=== PATIENT | female | born 1985 | race Caucasian/White ===

== ENCOUNTER 2023-05-08 08:20 | Emergency (ER) | payer BC ==
[2023-05-08] MEDS ORDERED: KETOROLAC 15 MG/ML 1 ML VIAL IVP STA (08:46)
[2023-05-08] MEDS ORDERED: SODIUM CHLORIDE 0.9% 1,000 ML IV STA (08:46)
[2023-05-08] MEDS ORDERED: IPRATROPIUM-ALBUTEROL 3 ML NEB INHALATION STA (08:46)
--- NOTE | 2023-05-08 08:53 | ED ---
SOB HPI - General Chief Complaint: Shortness of Breath Stated Complaint: Chest pains Time Seen by Provider: 05/08/23 08:23 Source: patient, RN notes reviewed Mode of arrival: ambulatory Limitations: no limitations - History of Present Illness Initial Comments: This is a 38-year-old female who presents to the emergency department for chest pain and shortness of breath. Patient states that for the last week she has had coughing and congestion, and thought that she just had a cold. Over the last couple of days she started to develop a right-sided chest pain with shortness of breath. The pain started out as sharp and has since become achy and pressure- like in nature. Denies any history of similar symptoms in the past. Also denies any history of respiratory illnesses such as asthma or COPD. She is not a smoker. Denies any personal or family history of cardiac problems. Denies any fevers, chills, sore throat, palpitations, abdominal pain, nausea, vomiting, diarrhea, back pain, or headaches. MD Complaint: shortness of breath, cough, chest pain - Related Data Previous Rx's Medication Instructions Recorded Albuterol Sulfate [Albuterol 1 puff PO Q4-6H PRN #8.5 gm 05/08/23 Sulfate Hfa] Azithromycin [Zithromax] 250 mg PO DIRECTED #6 tab 05/08/23 Promethazine/Dextromethorphan 5 ml PO Q4-6H PRN #473 ml 05/08/23 [Promethazine-Dm Syrup] predniSONE 50 mg PO DAILY 5 Days #5 tab 05/08/23 Allergies Allergy/AdvReac Type Severity Reaction Status Date / Time No Known Allergies Allergy Verified 05/08/23 10:24 Review of Systems ROS Statement: Those systems with pertinent positive or pertinent negative responses have been documented in the HPI. ROS Other: All systems not noted in ROS Statement are negative. Past Medical History Past Medical History: No Reported History History of Any Multi-Drug Resistant Organisms: None Reported Past Surgical History: Adenoidectomy, Breast Surgery, Orthopedic Surgery, Tonsillectomy Past Psychological History: ADD/ADHD Smoking Status: Never smoker Past Alcohol Use History: Daily Past Drug Use History: None Reported General Exam Limitations: no limitations General appearance: alert, in no apparent distress Head exam: Present: atraumatic, normocephalic, normal inspection Respiratory exam: Present: normal lung sounds bilaterally. Absent: respiratory distress, wheezes, rales, rhonchi, stridor, chest wall tenderness Cardiovascular Exam: Present: regular rate, normal rhythm, normal heart sounds. Absent: systolic murmur, diastolic murmur, rubs, gallop, clicks Neurological exam: Present: alert, oriented X3, CN II-XII intact Psychiatric exam: Present: normal affect, normal mood Skin exam: Present: warm, dry, intact, normal color. Absent: rash Course Vital Signs 05/08/23 05/08/23 05/08/23 08:31 08:57 10:04 Temperature 98.2 F Pulse Rate 85 81 62 Respiratory 18 18 18 Rate Blood Pressure 155/106 141/104 126/92 O2 Sat by Pulse 99 99 97 Oximetry Medical Decision Making - Medical Decision Making This is a 38-year-old female who presents to the emergency department for chest pain and shortness of breath. Was pt. sent in by a medical professional or institution? @ -No Did you speak to anyone other than the patient for history? @ -No Did you review nursing and triage notes? @ -Yes, and I agree, it is accurate with regards to the patient's symptoms. Were old charts reviewed? @ -No Differential Diagnosis? @ -Differential Chest Pain: Stable Angina, Unstable Angina, STEMI, NSTEMI Aortic Dissection, Pneumothorax, Musculoskeletal, Esophageal Spasm GERD, Cholecystitis, Pancreatitis, Zoster, this is not meant to be an all-inclusive list. EKG interpreted by me (3pts min.)? @ -EKG interpreted by me demonstrating the following: Sinus rhythm. Ventricular rate 60 beats per minute, MT interval 173 ms, QRS duration 81 ms, QTC 391 ms. X-rays interpreted by me (1pt min.)? @ -Chest x-ray obtained. My interpretation identifies a right middle lobe infiltrate. CT interpreted by me (1pt min.)? @ -CT angiogram of the chest obtained. My interpretation identifies no evidence of a pulmonary embolus. U/S interpreted by me (1pt. min.)? @ -Not obtained What testing was considered but not performed? (CT, X-rays, U/S, labs)? Why? @ -None What meds were considered but not given? Why? @ -None Did you discuss the management of the patient with other professionals? @ -No Did you reconcile home meds? @ -No Was smoking cessation discussed for >3mins.? @ -No Was critical care preformed (if so, how long)? @ -No Were there social determinants of health that impacted care today? How? (Homelessness, low income, unemployed, alcoholism, drug addiction, transportation, low edu. Level, literacy, decrease access to med. care, [facility], rehab)? @ -No Was there de-escalation of care discussed even if they declined? (Discuss DNR or withdrawal of care, Hospice)? @ -No What co-morbidities impacted this encounter? (DM, HTN, Smoking, COPD, CAD, Cancer, CVA, Hep., AIDS, mental health diagnosis, sleep apnea, morbid obesity)? @ -None Was patient admitted / discharged? @ -Discharged. Lab work obtained revealing a mildly elevated d-dimer of 0.68. Lab work was otherwise nonactionable. COVID, influenza, and RSV testing were ne gative. Chest x-ray reveals a right middle lobe airspace opacity concerning for pneumonia. She was given IV fluids and Toradol with improvement in pain. Given her symptoms and elevated d-dimer, CTA of the chest was obtained. This did not identify any evidence of a pulmonary embolus. It did identify the patchy consolidation in the right lung, this one was better seen in the lower lobe as opposed to the middle lobe that was seen on the chest x-ray. Patient was given a DuoNeb breathing treatment as well, which she also found beneficial. Advised the patient that we will treat her for a pneumonia. Prescription for azithromycin, prednisone, promethazine DM cough syrup, and albuterol inhaler provided with dosing instructions reviewed. Otherwise advised close follow-up with her primary care provider. Undiagnosed new problem with uncertain prognosis? @ -None Drug Therapy requiring intensive monitoring for toxicity (Heparin, Nitro, Insulin, Cardizem)? @ -None Were any procedures done? @ -None Diagnosis/symptom? @ -Right middle/lower lobe pneumonia Acute, or Chronic, or Acute on Chronic? @ -Acute Uncomplicated (without systemic symptoms) or Complicated (systemic symptoms)? @ -Uncomplicated Side effects of treatment? @ -None Exacerbation, Progression, or Severe Exacerbation] @ -Not applicable Poses a threat to life or bodily function? @ -Unlikely Return precautions reviewed in depth, the patient is instructed to return to the emergency department with any new, worsening, or concerning symptoms. Patient verbalized understanding. This case was discussed in detail with the attending ED physician, Dr. Carmona. Presentation, findings, and treatment plan discussed in detail as well. - Lab Data Result diagrams: 05/08/23 08:51 05/08/23 08:51 Lab Results 05/08/23 05/08/23 05/08/23 Range/Units 08:51 08:51 08:51 WBC 5.0 (3.8-10.6) k/uL RBC 4.64 (3.80-5.40) m/uL Hgb 14.3 (11.4-16.0) gm/dL Hct 42.7 (34.0-46.0) % MCV 92.0 (80.0-100.0) fL MCH 30.8 (25.0-35.0) pg MCHC 33.4 (31.0-37.0) g/dL RDW 11.5 (11.5-15.5) % Plt Count 413 (150-450) k/uL MPV 7.0 Neutrophils % 52 % Lymphocytes % 38 % Monocytes % 6 % Eosinophils % 2 % Basophils % 0 % Neutrophils # 2.6 (1.3-7.7) k/uL Lymphocytes # 1.9 (1.0-4.8) k/uL Monocytes # 0.3 (0-1.0) k/uL Eosinophils # 0.1 (0-0.7) k/uL Basophils # 0.0 (0-0.2) k/uL PT 10.0 (9.0-12.0) sec INR 0.9 (<1.2) APTT 25.9 (22.0-30.0) sec D-Dimer 0.68 H (<0.60) mg/L FEU Sodium 139 (137-145) mmol/L Potassium 4.3 (3.5-5.1) mmol/L Chloride 105 (98-107) mmol/L Carbon Dioxide 23 (22-30) mmol/L Anion Gap 11 mmol/L BUN 10 (7-17) mg/dL Creatinine 0.50 L (0.52-1.04) mg/dL Est GFR (CKD-EPI)AfAm >90 (>60 ml/min/1.73 sqM) Est GFR (CKD-EPI)NonAf >90 (>60 ml/min/1.73 sqM) Glucose 89 (74-99) mg/dL Plasma Lactic Acid Jac (0.7-2.0) mmol/L Calcium 9.5 (8.4-10.2) mg/dL Total Bilirubin 0.4 (0.2-1.3) mg/dL AST 26 (14-36) U/L ALT 17 (4-34) U/L Alkaline Phosphatase 97 (38-126) U/L Troponin I (0.000-0.034) ng/mL Total Protein 7.4 (6.3-8.2) g/dL Albumin 4.1 (3.5-5.0) g/dL HCG, Qual Not Detected Influenza Type A (PCR) (Not Detectd) Influenza Type B (PCR) (Not Detectd) RSV (PCR) (Not Detectd) SARS-CoV-2 (PCR) (Not Detectd) 05/08/23 05/08/23 05/08/23 Range/Units 08:51 08:51 08:51 WBC (3.8-10.6) k/uL RBC (3.80-5.40) m/uL Hgb (11.4-16.0) gm/dL Hct (34.0-46.0) % MCV (80.0-100.0) fL MCH (25.0-35.0) pg MCHC (31.0-37.0) g/dL RDW (11.5-15.5) % Plt Count (150-450) k/uL MPV Neutrophils % % Lymphocytes % % Monocytes % % Eosinophils % % Basophils % % Neutrophils # (1.3-7.7) k/uL Lymphocytes # (1.0-4.8) k/uL Monocytes # (0-1.0) k/uL Eosinophils # (0-0.7) k/uL Basophils # (0-0.2) k/uL PT (9.0-12.0) sec INR (<1.2) APTT (22.0-30.0) sec D-Dimer (<0.60) mg/L FEU Sodium (137-145) mmol/L Potassium (3.5-5.1) mmol/L Chloride (98-107) mmol/L Carbon Dioxide (22-30) mmol/L Anion Gap mmol/L BUN (7-17) mg/dL Creatinine (0.52-1.04) mg/dL Est GFR (CKD-EPI)AfAm (>60 ml/min/1.73 sqM) Est GFR (CKD-EPI)NonAf (>60 ml/min/1.73 sqM) Glucose (74-99) mg/dL Plasma Lactic Acid Jac 0.8 (0.7-2.0) mmol/L Calcium (8.4-10.2) mg/dL Total Bilirubin (0.2-1.3) mg/dL AST (14-36) U/L ALT (4-34) U/L Alkaline Phosphatase (38-126) U/L Troponin I <0.012 (0.000-0.034) ng/mL Total Protein (6.3-8.2) g/dL Albumin (3.5-5.0) g/dL HCG, Qual Influenza Type A (PCR) Not Detected (Not Detectd) Influenza Type B (PCR) Not Detected (Not Detectd) RSV (PCR) Not Detected (Not Detectd) SARS-CoV-2 (PCR) Not Detected (Not Detectd) - Radiology Data Radiology results: report reviewed, image reviewed Disposition Clinical Impression: Right middle lobe pneumonia Disposition: HOME SELF-CARE Instructions (If sedation given, give patient instructions): Pneumonia (ED) Additional Instructions: Return to the emergency department with any new, worsening, or concerning symptoms. Take the antibiotic as prescribed for 5 days. Take the prednisone daily for 5 days as well. You can use the inhaler and promethazine DM cough s yrup up to every 4-6 hours as needed. Follow up with your primary care provider in 1-2 days. Prescriptions: Albuterol Sulfate [Albuterol Sulfate Hfa] 1 puff PO Q4-6H PRN #8.5 gm PRN Reason: Shortness Of Breath predniSONE 50 mg PO DAILY 5 Days #5 tab Promethazine/Dextromethorphan [Promethazine-Dm Syrup] 5 ml PO Q4-6H PRN #473 ml PRN Reason: Cough Azithromycin [Zithromax] 250 mg PO DIRECTED #6 tab Is patient prescribed a controlled substance at d/c from ED?: No Referrals: None,Stated [Primary Care Provider] - 1-2 days
[2023-05-08 09:03] VITALS: RESP 18; TEMP 98.2
--- NOTE | 2023-05-08 09:32 | XR ---
EXAMINATION TYPE: XR chest 2V DATE OF EXAM: 05/08/2023 9:22 AM COMPARISON: None TECHNIQUE: XR chest 2V Frontal and lateral views of the chest. CLINICAL INDICATION:Female, 38 years old with history of difficulty breathing; FINDINGS: Lungs/Pleura: No pleural effusion or pneumothorax. Right middle lobe airspace opacity. Pulmonary vascularity: Unremarkable. Heart/mediastinum: Cardiomediastinal silhouette is unremarkable. Musculoskeletal: No acute osseous pathology. IMPRESSION: Right middle lobe airspace opacity concerning for pneumonia.
[2023-05-08 09:41] LABS: Basophils % (A) 0 %; Eosinophils # (A) 0.1 k/uL (0-0.7); Eosinophils % (A) 2 %; HCT 42.7 % (34.0-46.0); HGB 14.3 gm/dL (11.4-16.0); Lymphocytes # (A) 1.9 k/uL (1.0-4.8); Lymphocytes % (A) 38 %; MCH 30.8 pg (25.0-35.0); MCHC 33.4 g/dL (31.0-37.0); Monocytes # (A) 0.3 k/uL (0-1.0); Monocytes % (A) 6 %; Neutrophils # (A) 2.6 k/uL (1.3-7.7); Neutrophils % (A) 52 %; Platelet Count 413 k/uL (150-450); RBC 4.64 m/uL (3.80-5.40); RDW 11.5 % (11.5-15.5)
[2023-05-08 09:57] LABS: ALT 17 U/L (4-34); AST 26 U/L (14-36); African American GFR (CKD) >90 (>60 ml/min/1.73 sqM); Albumin 4.1 g/dL (3.5-5.0); Alkaline Phosphatase 97 U/L (38-126); Anion Gap 11 mmol/L; Blood Urea Nitrogen 10 mg/dL (7-17); Calcium 9.5 mg/dL (8.4-10.2); Carbon Dioxide 23 mmol/L (22-30); Chloride 105 mmol/L (98-107); Glucose 89 mg/dL (74-99); Non-African American GFR(CKD) >90 (>60 ml/min/1.73 sqM); Potassium 4.3 mmol/L (3.5-5.1); Sodium 139 mmol/L (137-145); Total Bilirubin 0.4 mg/dL (0.2-1.3); Total Protein 7.4 g/dL (6.3-8.2)
[2023-05-08 10:00] LABS: HCG,Qualitative Serum Not Detected; INR 0.9 (<1.2)
[2023-05-08 10:01] LABS: Partial Thromboplastin Time 25.9 sec (22.0-30.0)
--- NOTE | 2023-05-08 10:43 | CT ---
EXAMINATION TYPE: CT chest angio for PE CT DLP: 252.7 mGycm, Automated exposure control for dose reduction was used. DATE OF EXAM: 05/08/2023 10:37 AM COMPARISON: Chest radiograph from same day. CLINICAL INDICATION:Female, 38 years old with history of Chest pain, MIGUEL, elevated d-dimer; chest michael n and congestion, elevated d-dimer TECHNIQUE/CONTRAST: CTA scan of the thorax is performed with IV Contrast, patient injected with 67ml mL of Isovue 370, pu lmonary embolism protocol. MIP images are created and reviewed. FINDINGS: Pulmonary Artery: There is no evidence for a filling defect within the pulmonary vasculature to sugge st acute pulmonary embolism. The pulmonary artery is of normal size. Lungs/Pleura: No pleural effusion or pneumothorax. Linear atelectasis within the lingula. Tree-in-bud nodular opacities within the superior segments of the bilateral lower lobes and medial aspect of the right upper lobe . Patchy consolidation within the lateral aspect of the right lower lobe. Airway: Large airways are patent. Heart: Heart is within normal limits for size.. No pericardial effusion. Vasculature: No evidence of aortic aneurysm. Mediastinum: No gross evidence of adenopathy. Musculoskeletal: No acute osseous abnormalities Soft Tissues: Bilateral breast prosthesis. Lower neck: No significant findings. Upper Abdomen: No significant findings. IMPRESSION: 1. No evidence of pulmonary embolism. 2. Patchy consolidation within the lateral aspect of the right lower lobe with tree-in-bud nodular op acities within the superior segment of the bilateral lower lobes and medial aspect of the right upper lobe. Findings are most consistent with infectious/inflammatory bronchiolitis.
[2023-05-08 12:05] VITALS: BP 118/76; PULSE 102
== END 2023-05-08 11:50 | disposition home or self-care (01) ==
LOC: EC 08:20
DX: J18.9 Pneumonia, unspecified organism (principal); Z20.822 Contact with and (suspected) exposure to COVID-19
CPT/HCPCS: 99285; 96374; 96361 ×2; 36415; 94640; 93005; 85379; 80053; 83605; 84484; 85025; 85610; 85730; 84703; 87636; 71046; 71275; J1885; Q9967

== ENCOUNTER 2023-06-30 08:12 | Emergency (ER) | payer BC ==
[2023-06-30 08:59] VITALS: BP 141/108; PULSE 93; RESP 20; TEMP 98.9
--- NOTE | 2023-06-30 09:01 | ED ---
General Adult HPI - General Chief complaint: Skin/Abscess/Foreign Body Stated complaint: right side body rash Time Seen by Provider: 06/30/23 08:44 Source: patient, RN notes reviewed Mode of arrival: ambulatory Limitations: no limitations - History of Present Illness Initial comments: Patient 38-year-old female presented to the emergency room today with a chief complaint of a rash that started 3 days ago. Patient does admit that it's painful located to the right flank area. She states it feels likes spreading now down to the leg. Patient denies any itching. Denies any new contacts. Denies any other complaints or symptoms.Patient denies any recent fever, chills, shortness of breath, chest pain, back pain, abdominal pain, nausea or vomiting, numbness or tingling, headaches or visual changes, or any other complaints. - Related Data Previous Rx's Medication Instructions Recorded Albuterol Sulfate [Albuterol 1 puff PO Q4-6H PRN #8.5 gm 05/08/23 Sulfate Hfa] Azithromycin [Zithromax] 250 mg PO DIRECTED #6 tab 05/08/23 Promethazine/Dextromethorphan 5 ml PO Q4-6H PRN #473 ml 05/08/23 [Promethazine-Dm Syrup] predniSONE 50 mg PO DAILY 5 Days #5 tab 05/08/23 HYDROcodone/APAP 5-325MG [[place] 1 tab PO Q6HR PRN 3 Days #12 tab 06/30/23 5-325] Ibuprofen [Motrin] 600 mg PO Q6HR PRN #40 day 06/30/23 predniSONE [Deltasone] 20 mg PO BID 5 Days #10 tab 06/30/23 valACYclovir HCL [Valtrex] 1,000 mg PO TID #21 tablet 06/30/23 Allergies Allergy/AdvReac Type Severity Reaction Status Date / Time No Known Allergies Allergy Verified 06/30/23 08:40 Review of Systems ROS Statement: Those systems with pertinent positive or pertinent negative responses have been documented in the HPI. ROS Other: All systems not noted in ROS Statement are negative. Past Medical History Past Medical History: No Reported History History of Any Multi-Drug Resistant Organisms: None Reported Past Surgical History: Adenoidectomy, Breast Surgery, Orthopedic Surgery, Tonsillectomy Past Psychological History: ADD/ADHD Smoking Status: Never smoker Past Alcohol Use History: Daily Past Drug Use History: None Reported General Exam - General Exam Comments Initial Comments: General: The patient is awake and alert, in no distress, and does not appear acutely ill. Eye: No nystagmus. There is normal conjunctiva bilaterally. No signs of icterus. Ears, nose, mouth and throat: There are moist mucous membranes and no oral lesions. Neck: The neck is suppl Respiratory: respirations are non-labored, breath sounds are equal. Musculoskeletal: Normal ROM Neurological: A&O x 3. CN II-XII intact, There are no obvious motor or sensory deficits. Coordination appears grossly intact. Speech is normal. Skin: Patient has rest of the right flank that is consistent with shingles. Does not cross midline. Spots seen to the right thigh. Psychiatric: Cooperative, appropriate mood & affect, normal judgment. Limitations: no limitations Course Vital Signs 06/30/23 08:37 Temperature 98.9 F Pulse Rate 93 Respiratory 20 Rate Blood Pressure 141/108 O2 Sat by Pulse 99 Oximetry Medical Decision Making - Medical Decision Making 38-year-old female presented to the emergency room today with a chief complaint of a rash. No past medical history. The patient's rash consistent with shingles. Will be started on anti-inflammatories, [place] for pain. Also given prescription for antiviral and steroids. Patient advised return for any other concerns. States understanding and is agreement. Disposition Clinical Impression: Herpes zoster Disposition: HOME SELF-CARE Condition: Good Instructions (If sedation given, give patient instructions): Shingles (ED) Additional Instructions: Please use medication as discussed. Please follow-up with family doctor in the next 2 days of symptoms have not improved. Please return to emergency room if the symptoms increase or worsen or for any other concerns. Prescriptions: predniSONE [Deltasone] 20 mg PO BID 5 Days #10 tab Ibuprofen [Motrin] 600 mg PO Q6HR PRN #40 day PRN Reason: Pain HYDROcodone/APAP 5-325MG [[place] 5-325] 1 tab PO Q6HR PRN 3 Days #12 tab PRN Reason: Pain valACYclovir HCL [Valtrex] 1,000 mg PO TID #21 tablet Is patient prescribed a controlled substance at d/c from ED?: Yes If prescribed controlled substance>3 days was MAPS reviewed?: Prescribed <3 Days Referrals: None,Stated [Primary Care Provider] - 1-2 days Time of Disposition: 09:00
== END 2023-06-30 09:07 | disposition home or self-care (01) ==
LOC: EC 08:12
DX: B02.9 Zoster without complications (principal); Z86.59 Personal history of other mental and behavioral disorders
CPT/HCPCS: 99282